=== PATIENT | male | born 1995 | race Caucasian/White ===

== ENCOUNTER → 2021-01-12 | Outpatient (CLI) | payer BC | LOC: HEART 5 14:09 | DX: R00.2 Palpitations (principal) ==

== ENCOUNTER → 2021-11-26 | Outpatient (CLI) | payer BC | LOC: KOH-I 10:35 | DX: S92.535A Nondisplaced fracture of distal phalanx of left lesser toe(s), initial encounter for closed fracture (principal) | CPT/HCPCS: 73630 ==

== ENCOUNTER → 2021-12-24 | Outpatient (CLI) | payer BC | LOC: KOH-I 13:31 | DX: S92.912A Unspecified fracture of left toe(s), initial encounter for closed fracture (principal) | CPT/HCPCS: 73660 ==